=== PATIENT | male | born 1955 | race Hispanic/Latino ===

== ENCOUNTER 2022-01-23 10:05 | Emergency (ER) | payer OTHER ==
[~2022-01-23] VITALS: Ht 172.7 cm; Wt 98.9 kg
[~2022-01-23 10:05] MED LIST: ASCO500T10 PO; ASPI-1197 PO; ATOR-2 PO; CEPH500B PO; CETI10TA57 PO; DIPH50CA37 PO; IBUP-2070 PO; ISOS30TA92 PO; LISI20TA24 PO; METF-444 PO; OMEG1CAP2 PO; SYMBICORT INHALER IH; TAMS0.4C32 PO; TYL3 PO
[2022-01-23 11:10] VITALS: BP 164/55
== END 2022-01-23 11:49 | disposition home or self-care (01) ==
LOC: EDH 10:05
DX: S50.02XA Contusion of left elbow, initial encounter (principal); S00.432A Contusion of left ear, initial encounter; Z79.82 Long term (current) use of aspirin; Z79.899 Other long term (current) drug therapy; Z79.84 Long term (current) use of oral hypoglycemic drugs; V43.52XA Car driver injured in collision with other type car in traffic accident, initial encounter; Y93.89 Activity, other specified; Y92.410 Unspecified street and highway as the place of occurrence of the external cause; Y99.8 Other external cause status
CPT/HCPCS: 73080

== ENCOUNTER 2023-06-08 23:47 | Emergency (ER) | payer OTHER ==
[~2023-06-08] VITALS: Ht 172.7 cm; Wt 94.8 kg
[~2023-06-08 23:47] MED LIST changes: -ASCO500T10 PO; -ASPI-1197 PO; +BENZ200C53 PO; +CARB-37 PO; +CARB1DRO39 OP; -CEPH500B PO; -CETI10TA57 PO; -DIPH50CA37 PO; +GABA-529 PO; +GUAI100S13 PO; +HYDR-3420 PO; -IBUP-2070 PO; +LEVO-70 PO; -LISI20TA24 PO; -METF-444 PO; -OMEG1CAP2 PO; +OMEP40CA21 PO; +RANO500T6 PO; +SERT-440 PO; -SYMBICORT INHALER IH; -TAMS0.4C32 PO; +TRAZ-187 PO; -TYL3 PO
[2023-06-08] MEDS ORDERED: IOHEXOL 350 MG/ML 100ML INFUS..BTL IV ONE (23:55)
[2023-06-09] MEDS ORDERED: LACTATED RINGERS 1000ML 1,000 ML IV ONE
[2023-06-09 00:35] LABS: BASOPHILS # (AUTO) 0.01 K/uL (0.00-0.20); BASOPHILS % (AUTO) 0.2 % (0.0-5.0); CREATININE 1.4 mg/dL (0.5-1.5); EOSINOPHILS # (AUTO) 0.02 K/uL (0.00-0.70); EOSINOPHILS % (AUTO) 0.4 % (0.0-8.0); HEMATOCRIT 36.7 % (42-54); IMMATURE GRANULOCYTE ABSOLUTE 0.02 K/uL (0-1); INR 0.95 (0.85-1.15); LYMPHOCYTES # (AUTO) 0.4 K/uL (1.0-4.8); LYMPHOCYTES % (AUTO) 7.7 % (21.0-51.0); MEAN CORPUSCULAR HEMOGLOBIN 31.9 pg (27.0-33.0); MEAN CORPUSCULAR HGB CONC 33.5 g/dL (32.0-36.0); MEAN CORPUSCULAR VOLUME 95.3 fL (79-99); MONOCYTES # (AUTO) 0.7 K/uL (0.1-1.0); MONOCYTES % (AUTO) 13.1 % (3.0-13.0); NEUTROPHILS # (AUTO) 4.3 K/uL (1.8-7.7); NEUTROPHILS % (AUTO) 78.2 % (40.0-77.0); PLATELET COUNT (AUTO) 127 K/uL (130-400); POTASSIUM 3.8 mmol/L (3.5-5.1); PROTHROMBIN TIME 11.1 SEC (9.6-11.6); RED BLOOD CELL COUNT(AUTO) 3.85 MIL/uL (4.50-6.20); RED CELL DISTRIBUTION WIDTH 14.1 % (11.0-15.5); WHITE BLOOD COUNT (AUTO) 5.5 K/uL (4.8-10.8)
[2023-06-09 00:38] LABS: ADD UA MICROSCOPIC NO; APPEARANCE,URINE CLEAR (CLEAR); BILIRUBIN,URINE NEGATIVE (NEGATIVE); COLOR,URINE LIGHT-YELLOW (YELLOW); GLUCOSE, URINE (UA) NEGATIVE (NEGATIVE); KETONES,URINE NEGATIVE (NEGATIVE); LEUKOCYTE ESTERASE ,URINE NEGATIVE Leu/uL (NEGATIVE); NITRATE,URINE NEGATIVE (NEGATIVE); OCCULT BLOOD,URINE NEGATIVE (NEGATIVE); PH,URINE 5.5 (5.0-8.0); PROTEIN,URINE 20 mg/dL (NEGATIVE); UROBILINOGEN,URINE 0.2 mg/dL (0.2-1.0)
[2023-06-09 00:43] LABS: ALBUMIN 3.6 g/dL (3.5-5.0); BILIRUBIN,TOTAL 0.7 mg/dL (0.2-1.0); TOTAL PROTEIN, SERUM 7.5 g/dL (6.0-8.3)
[2023-06-09] MEDS ORDERED: ACETAMINOPHEN 500 MG TABLET ONE (00:49)
[2023-06-09] MEDS ORDERED: IBUPROFEN 600 MG TABLET ONE (00:50)
[2023-06-09] MEDS ORDERED: ACETAMINOPHEN 500 MG TABLET PO ONE (01:00)
[2023-06-09] MEDS ORDERED: IBUPROFEN 600 MG TABLET PO ONE (01:00)
[2023-06-09 01:12] LABS: PARTIAL THROMBOPLASTIN TIME 30.1 SEC (26.3-35.5)
[2023-06-09] MEDS ORDERED: IBUP-1493 PO (01:52)
[2023-06-09] MEDS ORDERED: CYCL-309 PO (01:52)
[2023-06-09 02:10] VITALS: BP 136/66; PULSE 86; RESP 20; O2SAT 98
== END 2023-06-09 02:10 | disposition home or self-care (01) ==
LOC: EDH 23:47
DX: S40.012A Contusion of left shoulder, initial encounter (principal); R07.89 Other chest pain; E11.9 Type 2 diabetes mellitus without complications; E78.00 Pure hypercholesterolemia, unspecified; I10 Essential (primary) hypertension; Z79.899 Other long term (current) drug therapy; V89.2XXA Person injured in unspecified motor-vehicle accident, traffic, initial encounter; Y93.89 Activity, other specified; Y92.89 Other specified places as the place of occurrence of the external cause; Y99.8 Other external cause status
CPT/HCPCS: 99285; 70450; 82550; 83874; 84484; 80053; 85025; 85610; 85730; 81003; 36415; 72125; 71270; 74178; 93005; 96360; 73080; 73130; 73030; Q9967; J7120